=== PATIENT | male | born 1960 | race Caucasian/White ===

== ENCOUNTER 2020-02-07 10:47 | Outpatient (CLI) | payer OTHER, SELFPAY ==
--- NOTE | 2020-03-08 01:44 | WPDHOMESLEEP ---
Sleep Study - Home Unattended Date of Study: 02/07/20 Ordering Provider: Jefe Julian MD Interpreting Physician: Blanka Avery MD Home Sleep Study Type: Apnea Link Air Height: 1.85 m Weight: 142.882 kg Body Mass Index: 41.5 [place]: 7 Reason for Sleep Study known sleep apnea, increased fatigue Sleep History Robles Calle Sr is a 60 year old man with a history of obstructive sleep apnea. He has a CPAP machine. He feels exhausted in the day and has no energy. He currently wakes up during the night. He does not awaken from sleep feeling short of breath and does not awaken at night with heartburn, belching or coughing. The patient did not complete much of the survey. His normal bedtime is between 8 and 9:00 p.m.. He wakes 3 or 4 times at night for a few minutes to go to the bathroom. He wakes in the morning at 4:30 a.m.. He has fatigue and sexual problems. He denies taking naps. He short nap is not refreshing. He is drowsy in the morning for 3 hours or longer. He feels better in the afternoon compared other times of day. Habits: Tobacco 2 packs per day. Caffeine 2 cups of coffee daily. No alcohol or recreational drugs PMFSH Past Medical History Medical History (Updated 03/08/20 @ 02:00 by Blanka Avery MD) Bilateral foot pain Colon cancer screening COPD (chronic obstructive pulmonary disease) Daytime somnolence Diabetes Encounter for prostate cancer screening Encounter to establish care Hypertension Male erectile dysfunction, unspecified Mixed hyperlipidemia Morbid obesity with BMI of 40.0-44.9, adult Obstructive sleep apnea on CPAP Pain due to dental caries Peripheral neuropathy Primary hypertension Tobacco abuse Uncontrolled type 2 diabetes mellitus with microalbuminuria, without long-term current use of insulin Vitamin B12 deficiency anemia Family History Family History Father Hypertension Heart disease Mother Hypertension Diabetes mellitus Social History Social History Smoking packs per day: 2 Smoking cigarettes per day: 40.0 Years smoked: 35 Smoking pack-years: 70.00 Smoking status: Heavy tobacco smoker Tobacco type: cigarettes Alcohol intake: never Substance use: never Medications Home Medications Medication Instructions Recorded Confirmed Type Symbicort 80 mcg-4.5 mcg/actuation 2 puff INHALATION Q12H #10.2 gm NS 01/05/20 Rx HFA aerosol inhaler amlodipine 5 mg tablet 5 mg PO DAILY #90 tablet 01/05/20 01/05/20 Rx atorvastatin 20 mg tablet 20 mg PO DAILY #90 tablet 01/05/20 01/05/20 Rx blood sugar diagnostic #200 each 01/05/20 01/05/20 Rx blood-glucose meter #1 each 01/05/20 01/05/20 Rx glimepiride 4 mg tablet 4 mg PO BID 90 Days #180 tablet 01/05/20 01/05/20 Rx lancets 30 gauge #200 each 01/05/20 01/05/20 Rx telmisartan 40 mg tablet 40 mg PO DAILY #90 tablet 01/05/20 01/05/20 Rx cyanocobalamin (vitamin B-12) 1,000 mcg PO DAILY 01/09/20 History 1,000 mcg tablet hydrochlorothiazide 25 mg tablet 25 mg PO DAILY #30 tablet 01/10/20 Rx linagliptin 5 mg tablet 5 mg PO QAM #90 tablet 01/16/20 Rx penicillin V potassium 500 mg 500 mg PO Q8H #30 tablet 02/23/20 Rx tablet tramadol 50 mg tablet 50 mg PO Q6H PRN #28 tablet 02/23/20 Rx Sleep Procedure This test was performed using 4 channel monitoring including respiratory effort channel, snoring channel, heart rate channel, and oxygen saturation channel. This study was scored using CMS guidelines. Sleep Architecture Not applicable for home sleep test. Respiratory Analysis The patient had 2 portions in his study, the first was short at 1 hours 19 minutes. This data was not used. The second portion was adequate for interpretation with a recording time of 5 hours 30 minutes, and evaluation time was 5 hours 18 minutes. The apnea-hypopnea index is 46. He had 60 apnea
[2020-03-08 02:05] VITALS: BMI 41.5
== END 2020-02-07 10:48 | disposition home or self-care (01) ==
LOC: ANHCSM 10:48
PROVIDERS: Visit Provider Family Medicine
DX: G47.33 Obstructive sleep apnea (adult) (pediatric) (principal); Z99.89 Dependence on other enabling machines and devices
CPT/HCPCS: 95806

== ENCOUNTER 2023-03-09 10:13 | Outpatient (CLI) | payer OTHER, SELFPAY ==
--- NOTE | 2023-03-09 10:20 | ECG_ITS ---
Measurements Intervals [place] Rate: 94 P: 147 [place]: 174 QRS: 45 QRSD: 90 T: 0 QT: 344 QTc: 432 Interpretive Statements ECTOPIC ATRIAL RHYTHM CONSIDER INFERIOR INFARCT, AGE INDETERMINATE BORDERLINE T WAVE ABNORMALITY- HIGH LATERAL LEADS BASELINE ARTIFACT- AVL ABNORMAL ECG NO PREVIOUS ECG AVAILABLE FOR COMPARISON Electronically Signed On 03-09-2023 10:38:54 [employer] by Eliud Cole D.O.
== END 2023-03-09 10:14 | disposition home or self-care (01) ==
LOC: ANHCARD 10:15
PROVIDERS: PCP Family Medicine; Visit Provider Family Medicine
DX: I49.9 Cardiac arrhythmia, unspecified (principal); R94.31 Abnormal electrocardiogram [ECG] [EKG]
CPT/HCPCS: 93005